=== PATIENT | male | born 1995 | race Caucasian/White ===

== ENCOUNTER 2016-11-26 22:47 | Emergency (ER) | payer MEDICAID ==
[2016-11-27 02:05] LABS: APPEARANCE CLEAR (CLEAR); COLOR YELLOW (YELLOW)
[2016-11-27 02:06] LABS: BILIRUBIN NEGATIVE (NEGATIVE); GLUCOSE NEGATIVE (NEGATIVE); KETONE NEGATIVE (NEGATIVE); LEUKOCYTE ESTERASE NEGATIVE (NEGATIVE); NITRITE NEGATIVE (NEGATIVE); PROTEIN NEGATIVE (NEGATIVE); UROBILINOGEN NORMAL (NORMAL)
== END 2016-11-27 04:46 | disposition home or self-care (01) ==
LOC: D.ER 22:47
PROVIDERS: Emergency Medicine
DX: N48.89 Other specified disorders of penis (principal)

== ENCOUNTER 2017-05-03 23:58 | Emergency (ER) | payer MEDICAID | END 2017-05-04 01:35 | disposition home or self-care (01) | LOC: D.ER 23:58 | DX: R50.9 Fever, unspecified (principal); R53.81 Other malaise; M79.1 Myalgia; F17.200 Nicotine dependence, unspecified, uncomplicated ==

== ENCOUNTER → 2019-12-16 | Emergency (ER) | payer SELFPAY ==
[~2019-12-16] VITALS: Ht 172.7 cm; Wt 59.1 kg
[~2019-12-16] MED LIST: CLEOCIN HCL300 MG PO; VOLTAREN75 MG PO
[2019-12-16 23:39] VITALS: BP 129/69; Ht 172.7 cm; Wt 59.1 kg
== END | disposition home or self-care (01) ==
LOC: D.ER 23:37
DX: K08.89 Other specified disorders of teeth and supporting structures (principal); K04.7 Periapical abscess without sinus